=== PATIENT | female | born 1975 | race Caucasian/White ===

== ENCOUNTER 2024-01-11 23:16 | Emergency (ER) | payer MEDICAID ==
[~2024-01-11] VITALS: Ht 154.9 cm; Wt 88.5 kg
[2024-01-11 23:39] VITALS: BP_SYST 159; PULSE 97; RESP 19; TEMP 97.2; O2SAT 100
[2024-01-12] MEDS ORDERED: METH-776 PO (02:12)
[2024-01-12] MEDS ORDERED: NAPR-1172 PO (02:12)
[2024-01-12 02:45] VITALS: BP_SYST 159; PULSE 97; RESP 19; TEMP 97.2; O2SAT 100
== END 2024-01-12 02:44 | disposition home or self-care (01) ==
LOC: SED 23:16
DX: J02.8 Acute pharyngitis due to other specified organisms (principal); Z79.899 Other long term (current) drug therapy
CPT/HCPCS: 99283